=== PATIENT | female | born 1935 | race Caucasian/White ===

== ENCOUNTER 2017-07-14 17:45 | Inpatient (IN) ==
--- NOTE | 2017-07-14 18:26 | Emergency Department Report ---
Altered Mental Status HPI - General Chief Complaint: Altered Mental Status Stated Complaint: Diabetic,Disoriented Time Seen by Provider: 07/14/17 18:12 Source: patient Mode of arrival: ambulatory Limitations: no limitations - History of Present Illness HPI narrative: She is brought in today by her daughter and granddaughter. Her granddaughter had called her this evening around 1700 to tell her she was going to pick her up and take her to go get groceries. Mally did respond back but was not making sense with her speech. She had her daughter call her and she again felt that she was speaking gibberish. She was able to speak but was not answering correctly. She does live alone and they have not seen her or spoken to her today at all so they are unsure how long she has been like this. She did state that she went to [employer] last evening. Her friend did call her daughter and advised that she was worried about Mally as she was wanting to light her floor furnace and she would not let anyone help her. She has had some moments of confusion and forgetfulness the last few days. Dr Ness hinton had called her daughter as well and was concerned that she had not been taking her medications at home. complaint: altered mental status Onset (ago): unknown Timing confirmed by: family member Severity: moderate Associated symptoms: denies other symptoms - Related Data Home Medications Medication Instructions Recorded Confirmed Clopidogrel Bisulfate [Clopidogrel] 75 mg PO DAILY 07/14/17 07/14/17 HydroCHLOROthiazide [Hydrodiuril] 25 mg PO WB 07/14/17 07/14/17 Insulin Detemir [Levemir] 25 unit SQ BID 07/14/17 07/14/17 Metoprolol Succinate 100 mg PO DAILY 07/14/17 07/14/17 Nitroglycerin [Nitrostat] 0.4 mg PO Q5MIN3 PRN 07/14/17 07/14/17 Simvastatin [Zocor] 20 mg PO DAILY 07/14/17 07/14/17 glipiZIDE [Glipizide] 10 mg PO BID 07/14/17 07/14/17 Allergies Allergy/AdvReac Type Severity Reaction Status Date / Time Penicillins Allergy Unknown Verified 07/14/17 18:26 Sulfa (Sulfonamide Allergy Unknown Verified 07/14/17 18:26 Antibiotics) Review of Systems Constitutional: Denies: fever, chills, weakness ENT: Denies: ear pain, throat pain, congestion Cardiovascular: Denies: chest pain, palpitations, dyspnea on exertion, edema Respiratory: Denies: cough, dyspnea, wheezes Gastrointestinal: Denies: abdominal pain, nausea, vomiting, diarrhea Neurological: Denies: headache, weakness, numbness, paresthesias PFSH Diabetes HTN Glaucoma - Social History Smoking status: Never smoker Substance use type: does not use Alcohol intake frequency: does not drink Physical Exam - Limitations Limitations: no limitations - General General appearance: alert, in no apparent distress - Normal Exams: Eyes:: Pupils are PERRLA w/ EOMI, No scleral icterus, irritation, or foreign bodies noted ENMT:: No facial trauma, nasal exudates, pharyngeal erythema, or exudates are noted Neck:: Full range of motion, without adenopathy, JVD, bruits or thyromegaly Chest/Respirations:: Clear all bush, with good airflow, and symmetry bilaterally Cardiovascular:: Regular rate and rhythm, without murmur or gallop, Pulses 2+ all extremities, capillary refill, <2 seconds all extremities Abdomen:: Bowel sounds positive, soft, non-tender, non-distended, no hepatosplenomegaly, masses or bruits noted Lymphatic:: No lymphadenopathy, or lymphedema noted Integumentary:: No rashes, hives, or bruising noted Neurological:: Patient is alert Psychiatric:: Patient exhibits, appropriate attention, emotion and affect - Expanded Neurological Exam Cranial nerves: Normal: EOM function (II, III, IV, ), facial sensation (V), facial palsy (VII), gag reflex (IX), spinal accessory function (XI), tongue deviation (XII) Cerebellar function: Normal: finger to nose Motor strength - LUE: 5/5 Motor strength - RUE: 5/5 Motor strength - LLE: 5/5 Motor strength - RLE: 5/5 Upper motor neuron exam: Absent bilaterally: patricia neglect, pronator drift Sensory exam upper extremity: Normal: light touch Sensory exam lower extremity: Normal: light touch Coma scale eye opening: spontaneous Coma scale motor response: obeys commands Coma scale verbal response: oriented Coma scale total: 15 Altered Mental Status - MDM Narrative Medical decision making narrative: Her labs are unremarkable today as well as her head CT and chest xray. She does continue to be confused with conversation, is not answering appropriately. Did discuss findings and HPI with Dr Wang. He will accept for admission at this time. - Differential Diagnosis Likely: altered mental status, delirium, dementia, hyponatremia, subarachnoid hemorrhage - Lab Data Attestation: I reviewed the patient's lab results. Result diagrams: 07/14/17 18:16 07/14/17 18:16 - Radiology Data Attestation: I reviewed the patient's radiology results. Ct head: no acute findings Chest xray: left pleural effusion, chronic findings Disposition Clinical Impression: Altered mental status Qualifiers: Altered mental status type: unspecified Qualified Code(s): R41.82 - Altered mental status, unspecified Disposition: 02 To [facility] Condition: Stable Prescriptions: No Action Simvastatin [Zocor] 20 mg PO DAILY HydroCHLOROthiazide [Hydrodiuril] 25 mg PO WB glipiZIDE [Glipizide] 10 mg PO BID Metoprolol Succinate 100 mg PO DAILY Clopidogrel Bisulfate [Clopidogrel] 75 mg PO DAILY Insulin Detemir [Levemir] 25 unit SQ BID Nitroglycerin [Nitrostat] 0.4 mg PO Q5MIN3 PRN PRN Reason: Chest Pain Referrals: Srinath Srinivasan II, MD [Primary Care Provider] - Time of Disposition: 19:33 - Seen By: midlevel
--- OUTSIDE RECORDS SUMMARY | 2017-07-14 18:40 | External Medical Summary | Encounter Summary ---
:1935 Author Organization [facility] Address [address] [place] [address] Phone Care Team Providers Name Role Phone Unavailable Primary Care Provider Unavailable Reason for Visit Reason Comments Medication Refill Encounter Details Date Type Department Care Team Description 07/01/2017 Refill [facility] Aye Coats MD Physicians - Internal [address] [facility] [place] [address] [facility] [place] [address] [address] [phone] [address] [place] [address] Social History Tobacco Use Types Packs/Day Years Used Date Never Smoker Smokeless Tobacco: Never Used Sex Assigned at Date Recorded Not on file as of this encounter Plan of Treatment Not on fileas of this encounter Visit Diagnoses Not on filein this encounter
--- OUTSIDE RECORDS SUMMARY | 2017-07-14 18:40 | External Medical Summary | Clinical Summary ---
:1935 Author Organization [facility] Address [address] [place] [address] Phone Care Team Providers Name Role Phone Unavailable Primary Care Provider Unavailable Source Comments Some departments are not documenting in the electronic medical record. If you do not see the information that you expected, contact Release of Information in the Health Information Management department at [phone] for further assistance in locating additional records.[facility] Allergies Active Allergy Reactions Severity Noted Date Comments Penicillins HIVES, RASH Medium 01/09/2015 Sulfa (Sulfonamide Antibiotics) HIVES, RASH Medium 01/09/2015 Hay Fever And Allergy Relief RHINORRHEA Low 01/09/2015 Sorbitol DIARRHEA Low 01/09/2015 Current Medications Prescription Sig. Disp. Refills Start Date End Date Status ERGOCALCIFEROL (VITAMIN D2) Take by mouth Active (VITAMIN D PO) daily. hydrochlorothiazide Take 25 mg by Active (HYDRODIURIL) 25 mg tablet mouth daily. aspirin EC 81 mg tablet Take 81 mg by Active mouth daily. travoprost(+) (TRAVATAN Z) Apply 1 Drop Active 0.004 % drop ophthalmic to both eyes solution at bedtime daily. timolol (TIMOPTIC) 0.25 % Place 1 Drop 1 Bottle 12 05/06/2015 Active ophthalmic into or around solutionIndications: one eye(s) twice drop in each eye bid daily. Indications: one drop in each eye bid sertraline (ZOLOFT) 50 mg Take 1 Tab by 90 Tab 1 06/20/2015 Active tablet mouth daily. latanoprost (XALATAN) 0.005 Apply 1 Drop 1 Bottle 6 10/01/2015 Active % ophthalmic solution to both eyes at bedtime daily. LEVEMIR 100 unit/mL soln INJECT 50 10 mL 12 04/19/2016 Active UNITS SUB-Q ONCE DAILY AT BEDTIME simvastatin (ZOCOR) 40 mg 0.5 Tabs at 90 Tab 3 05/11/2016 Active tablet bedtime daily. valsartan (DIOVAN) 160 mg TAKE ONE 90 Tab 1 06/10/2016 Active tablet TABLET BY MOUTH DAILY metoprolol XL (TOPROL XL) Take 1 Tab by 90 Tab 1 06/10/2016 Active 100 mg extended release mouth daily. tablet glipiZIDE (GLUCOTROL) 10 mg TAKE ONE 180 Tab 3 09/13/2016 Active tablet TABLET BY MOUTH TWICE A DAY Active Problems Problem Noted Date TIA (transient ischemic attack) 06/20/2015 Noncompliance with diet and medication regimen 05/26/2015 Overview: Due to dementia Osteopenia 02/10/2015 Overview: Femoral neck t score -1.6. FRAX: 5% 10-year risk of hip fracture Vitamin B12 deficiency 01/21/2015 Type 2 diabetes mellitus with diabetic polyneuropathy (HCC) 01/20/2015 Last Assessment & Plan: No evidence of retinopathy on dilated fundus examination. Discussed importance of good blood glucose and blood pressure control. Mixed Alzheimer's and vascular dementia 01/10/2015 Overview: Progressive memory loss + apraxia and executive dysfunction. MoCA 12/2014. CAD (coronary artery disease) Overview: s/p CABG HTN (hypertension) Glaucoma Overview: Tmax unknown Trab OS Gonio Gr 4 OU 0.7/0.8 529/532 Travatan OU QHS Timolol OU BID Last Assessment & Plan: Formatting of this note may be different from the original. Good IOP on current topical medication. Moderate cupping both eyes. CPM. 6 months. Next Visit: MRx OCT Nerve OCT Mac IOP x Pach Dilate x Glare B-scan HVF x Stereo Disc Photos x HLD (hyperlipidemia) Seasonal allergies Resolved Problems Problem Noted Date Resolved Date Chronic diarrhea 01/09/2015 01/20/2015 Encounters Date Type Specialty Care Team Description 07/01/2017 Refill General Internal Medicine Aye Coats MD from Last 3 Months Family History Medical History Relation Name Comments Stroke Father Cancer Mother breast cancer Parkinson's Mother Relation Name Status Comments Father Mother Social History Tobacco Use Types Packs/Day Years Used Date Never Smoker Smokeless Tobacco: Never Used Sex Assigned at Date Recorded Not on file Last Filed Vital Signs Vital Sign Reading Time Taken Blood Pressure 104/70 06/20/2015 11:31 AM CDT Pulse 95 06/20/2015 11:31 AM CDT Temperature 36.4 C (97.6 F) 06/20/2015 11:31 AM CDT Respiratory Rate 16 06/20/2015 11:31 AM CDT Oxygen Saturation 99% 06/20/2015 11:31 AM CDT Inhaled Oxygen Concentration - - Weight 64.6 kg (142 lb 6.4 oz) 06/20/2015 11:31 AM CDT Height 142.2 cm (4' 8") 06/20/2015 11:31 AM CDT Body Mass Index 31.93 06/20/2015 11:31 AM CDT Plan of Treatment Health Maintenance Due Date Last Done Comments PHYSICAL (COMPREHENSIVE) EXAM 1942 PERTUSSIS VACCINE 1946 TETANUS VACCINE 1952 FOOT EXAM 1953 SHINGLES VACCINE 1995 HBA1C 11/23/2015 05/23/2015, 01/09/2015 MICROALBUMIN 01/21/2016 01/20/2015 DILATED EYE EXAM 02/08/2016 02/07/2015 PREVNAR/PNEUMOVAX (#2) 03/21/2016 03/21/2015 INFLUENZA VACCINE 04/26/2017 OSTEOPOROSIS SCREENING Completed 01/28/2015
--- OUTSIDE RECORDS SUMMARY | 2017-07-14 18:40 | External Medical Summary | Referral Summary ---
:1935 Author [facility] Address [address] [place] [address] A[place] Rodríguez [address] Care Team Providers Name Role Phone Srinath Srinivasan II Primary Care Physician Encounter [facility] [id number] Date(s): 07/20/16 - 07/20/16 [facility] [place] [address]- [place] Discharge Disposition: 01-Home or Self Care Attending Physician: Chris Sin PA-C Admitting Physician: Chris Sin PA-C Vital Signs No data available for this section Problem List No data available for this section Allergies, Adverse Reactions, Alerts No data available for this section Medications No data available for this section Results No data available for this section Immunizations Vaccine Date Refusal Reason influenza virus vaccine, inactivated 07/20/16 Procedures No data available for this section Social History No data available for this section Assessment and Plan No data available for this section
[2017-07-14] MEDS ORDERED: NS 1,000 ML IV ONE (19:21)
[2017-07-14] MEDS: SALINE FLUSH 10ml SYRINGE IVF PRN (19:30)
[2017-07-14] MEDS ORDERED: ASPIRIN 325 MG TABLET PO ONE (19:33)
[2017-07-14] MEDS ORDERED: HYDROCODONE/APAP 5mg/325mg TABLET PO PRN (20:04)
[2017-07-14] MEDS ORDERED: GLUCOSE ORAL GEL 40% 37.5gm PO PRN (20:04)
[2017-07-14] MEDS ORDERED: ACETAMINOPHEN 325 MG TABLET PO PRN (20:04)
[2017-07-14] MEDS ORDERED: NITROGLYCERIN 0.4 MG SUBLINGUAL TABLET SL PRN (20:04)
[2017-07-14] MEDS ORDERED: ONDANSETRON 4 MG/2 ML INJECTION IVP PRN (20:04)
[2017-07-14 21:23] VITALS: BMI 24.0
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
[2017-07-14] MEDS: INSULIN ASPART 100unit/ml INJECTION SQ PRN (21:35)
[2017-07-14] MEDS: INSULIN DETEMIR 100unit/ml INJECTION SQ SCH (21:36)
[2017-07-14] MEDS: NS 1,000 ML IV SCH (23:52)
[2017-07-15] MEDS: INSULIN ASPART 100unit/ml INJECTION SQ PRN ×4 (06:46→22:49)
--- NOTE | 2017-07-15 08:33 | XRay Report ---
INDICATION: dyspnea PROCEDURE: CHEST 2-VIEWS UPRIGHT (PA & LAT) Encounter: Initial COMPARISON: June 09, 2010 FINDINGS: Cardiac silhouette remains enlarged with some obscuration of the left base with overlapping soft tissues. No obvious focal infiltrate. No pleural effusion or pneumothorax. Prior CABG. Mediastinal contours and pulmonary vascularity are within normal limits. Degenerative change in the spine. Impression: No acute cardiopulmonary disease. .
--- NOTE | 2017-07-15 08:35 | CT Scan Report ---
Indication: confusion PROCEDURE: CT head/brain wo con: Encounter: Initial Comparison: None Technique: Axial CT images through the head were performed without contrast. Iterative Reconstruction dose reducing technique was utilized. FINDINGS: Probable 5 mm small calcified meningioma in the anterior superior right frontal region. The ventricles are of normal size, shape, and contour for the patient's age. There are scattered areas of low attenuation in the white matter which most likely represent changes from chronic microvascular ischemia. The brainstem, cerebellum, and cerebral hemispheres otherwise have a normal morphology and CT attenuation. There is no evidence of midline displacement. No hemorrhage, signs of acute territorial stroke, mass effect, or edema is evident. The visualized portions of the skull base, midface, and calvarium demonstrate no abnormality. The paranasal sinuses are well aerated and free of significant disease. The tympanic and mastoid cavities appear normal. IMPRESSION: No acute intracranial abnormality or hemorrhage. Probable small benign calcified meningioma. There is a preliminary report by [employer]. .
[2017-07-15] MEDS ORDERED: SIMVASTATIN 40 MG TABLET PO SCH ×2 (09:00→21:00)
[2017-07-15] MEDS: INSULIN DETEMIR 100unit/ml INJECTION SQ SCH ×2 (09:25→22:48)
[2017-07-15] MEDS: CLOPIDOGREL 75 MG TABLET PO SCH (09:25)
--- NOTE | 2017-07-15 09:39 | Ultrasound Report ---
Indication: change in thought process PROCEDURE: US carotid doppler BI: TECHNIQUE: Grayscale, color and duplex Doppler imaging was performed of the carotid systems bilaterally. Velocities in cm/sec - validated velocity measurements with angiographic measurements, velocity criteria are extrapolated from diameter data as defined by the Society of Radiologists in Ultrasound Consensus Conference Radiology 2003; 229;340-346. RIGHT: PSV ICA 107 EDV ICA 15.5 PSV CCA 56.4 EDV CCA 9.62 PSV ECA 237 ICA Diameter reduction 30%-50% (1.4-1.6)% LEFT: PSV ICA 72.2 EDV ICA 20.6 PSV CCA 58.4 EDV CCA 12 PSV ECA 271 ICA Diameter reduction 10%-30% (1.0-1.2 PSV<110)% The right vertebral artery is patent with cephalic flow. The left vertebral artery is patent with cephalic flow. Bilateral ECA stenoses with velocity elevations. Atherosclerotic plaque in both carotid bulbs and proximal ICAs without focal velocity elevation. IMPRESSION: 1.Borderline stenosis in the right proximal ICA based on ICA/CCA ratios. 2. No hemodynamically significant carotid stenosis on the left. .
[2017-07-15] MEDS: NS 1,000 ML IV SCH (10:29)
[2017-07-15] MEDS ORDERED: SALINE FLUSH 10ml SYRINGE ONE (11:06)
[2017-07-15] MEDS ORDERED: GADOTERIDOL 279.3mg/ml - 17ml SYRINGE IVP ONE (11:07)
--- NOTE | 2017-07-15 12:29 | Magnetic Resonance Report ---
Indication: change in thought processes PROCEDURE: MR head/brain wo/w con: Encounter: Initial Comparisons: Head CT dated July 14, 2017 Technique: Multiplanar, multisequence, MR imaging of the head with and without contrast was acquired. Contrast: 11 mL of ProHance FINDINGS: Calcified small meningioma in the right frontal vertex measuring 8 mm in size. This does not contact the underlying parenchyma and there is no surrounding parenchymal edema. Mild generalized atrophy. The ventricles are of normal size, shape, and contour for the patient's age. There are small nonspecific punctate areas of T2-weighted and T2 FLAIR weighted signal abnormality in the deep frontoparietal white matter that most likely represent small vessel ischemic disease. This is of a degree that is considered to be normal for the patient's age. The brain stem, cerebellum, and cerebral hemispheres otherwise have a normal morphologic appearance as well as MR signal intensity on all pulse sequences. Following intravenous administration of contrast, no areas of abnormal enhancement are evident. There are no areas of restricted diffusion to suggest an acute infarct. There is no evidence of an intracranial hemorrhage, or hydrocephalus. The visualized portions of the orbits, calvarium and skull base demonstrate no significant abnormality. Moderate sinus disease. IMPRESSION: No acute intracranial abnormality. Moderate sinus disease. .
[2017-07-15] MEDS ORDERED: INFLUENZA VAC High Dose 2017-18 (Fluzone HD*) (>=65yo) 0.5ml IM ONE (12:43)
[2017-07-15] MEDS ORDERED: PNEUMOCOCCAL 13 VACCINE 0.5ml INJECTION IM ONE (12:43)
[2017-07-15] MEDS ORDERED: ASPIRIN 81 MG CHEWABLE TABLET PO SCH (14:15)
[2017-07-15] MEDS ORDERED: INFLUENZA VAC. INJ. ADMIN CHARGE INJ ONE (18:40)
[2017-07-15] MEDS ORDERED: PNEUMOCOCCAL VAC ADMIN CHARGE INJ ONE (18:40)
[2017-07-15] MEDS ORDERED: SIMVASTATIN 20 MG TABLET PO SCH (21:00)
[2017-07-16] MEDS: INSULIN DETEMIR 100unit/ml INJECTION SQ SCH ×2 (09:40→21:12)
[2017-07-16] MEDS: CLOPIDOGREL 75 MG TABLET PO SCH (09:41)
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
[2017-07-16] MEDS ORDERED: INSULIN ASPART 100unit/ml INJECTION SQ ONE ×2 (15:43→21:15)
[2017-07-16] MEDS ORDERED: SIMVASTATIN 40 MG TABLET PO SCH (16:05)
--- NOTE | 2017-07-16 16:18 | Progress Note ---
- Date 07/16/17 Subjective: The patient was seen this afternoon alone in her room. She states she is feeling okay. She denies any pain. She denies shortness of breath. She is eating and drinking okay. She has no complaints. She states her vision is good today. The patient was noted to have a low blood sugar this morning on routine lab testing it was 45. She was given 2 juices and blood sugar did normalize. After lunch blood sugar was 315. Objective Vital signs: Temperature 96.3 F L 07/16/17 08:00 Pulse Rate 96 07/16/17 15:31 Respiratory Rate 16 07/16/17 15:31 Blood Pressure 188/91 H 07/16/17 15:31 Pulse Oximetry 99 07/16/17 15:31 Height/Weight/BMI: Weight 57.9 kg Comments: GEN-alert, pleasant, no acute distress HEENT-clear anicteric, oropharynx is moist NECK-supple CV-regular rate and rhythm CHEST-clear to auscultation bilaterally ABD-soft, nontender with positive bowel sounds -no Greene EXT-no edema NEURO-no focal deficits SKIN-warm and dry and without rashes Results - Labs CBC & Chem 7: 07/15/17 07:02 07/16/17 05:30 Labs: Specimen was hemolyzed this morning likely accounting for the elevated potassium of 5.6. Assessment and Plan (1) Metabolic encephalopathy Current visit: Yes Status: Acute (2) HTN (hypertension) Current visit: Yes Status: Acute (3) DM type 2 (diabetes mellitus, type 2) Current visit: Yes Status: Acute (4) Coronary artery disease Current visit: Yes Status: Acute (5) Dementia Current visit: Yes Status: Acute (6) Social discord Current visit: Yes Status: Acute DVT Prophylaxis: SCD's Resuscitation Status: Full Code Assessment and Plan: 07/16/2017 Impression Encephalopathy: Uncertain etiology. This could be related to underlying dementia with acute confusion due to TIA which is improving, versus hyperglycemia, versus uncontrolled blood pressure. -Overall improved Dementia, most likely Alzheimer's type Poorly controlled hypertension -blood pressure poorly controlled even after reinitiation of metoprolol poorly controlled type 2 diabetes with A1c of 12.1-blood sugar is labile on Levemir 25 units twice a day and sliding scale insulin. Hyperlipidemia-uncertain if patient was taking her simvastatin Coronary artery disease Possible depression Weight loss of 20 pounds-low pre-albumin of 13.2 Hypokalemia-resolved Borderline right proximal internal carotid artery stenosis Heart murmur Probable noncompliance with medication due to dementia Plan Blood sugars are currently labile. Will discontinue sliding scale. Monitor blood sugars closely. May need to adjust medication further. Hypertension, blood pressure is not well controlled even on metoprolol. We'll add Norvasc 5 mg daily. Increase activity as [id number] halls 3 times a day with the nurses B 12 level is pending Appreciate psychiatric consultation. Case management consult to discuss discharge planning with family. The patient will need 24-hour supervision due to her dementia. Regarding weight loss and low prealbumin, this may be due to irregular by mouth intake because of her dementia. Hopefully this will improve as an outpatient. Possible discharge on Tuesday if blood pressure and blood sugars are more stable. Hospital Course Summary Disclaimer: The visit summary below is not to be considered part of the above Progress Note. Hospital Course: 07/15/2017-I have reviewed the H&P above by Dr. Wang. I agree with the note above, please see my additions below. The patient was seen today accompanied by her daughter Ros and her granddaughter. Ros is DPOA along with her sister Shi. Chief complaint is speech difficulties History of present illness: The patient lives alone. Her daughter and granddaughter state that she has been having memory decline and problems with self-care over the past 2-3 years. They state that she was driving on a revoked license 2-3 years ago and was actually arrested and taken to [facility]. She has not driven since that time. Family has tried home health which the patient refused to cooperate with the nurse and would not make payments to the home health company and so this was discontinued. The patient was living with a daughter in [place] up until 2 years ago and was doing well when her medications were managed and her diet was regular but she declined when she went home. The patient's son and daughter and granddaughter check on her fairly frequently. Yesterday her granddaughter called and noticed that the patient had incoherent speech and stuttering and what sounds like word salad. She was brought into the emergency room and found to have elevated blood pressure as high as 220/96 and elevated blood sugar of 439. The patient was admitted for possible stroke versus TIA and stroke workup was initiated. She has had neuro checks. She has been on telemetry and has been in sinus rhythm. Carotid Dopplers were obtained and showed borderline blockage in the right proximal internal carotid. MRI brain was obtained and did not show an acute stroke. She did have a small calcified meningioma. CT head did not show an acute bleed or any other acute abnormalities. Also seen was a small calcified probable meningioma. Today, the patient's granddaughter and daughter state her speech is better but not back to baseline. The patient tells me she is feeling fine. She states she remembers having some difficulties with speech yesterday but cannot elaborate. She denies feeling poorly recently. She has had some blurry vision which she noted to her daughter in the past, and this is likely secondary to poorly controlled blood sugar. She admits that she has mild urinary frequency and some mild constipation. She has a chronic mild cough secondary to allergies. Family reports a 20 pound weight loss in the past 1 month. The patient denies any pain anywhere. She denies any chest pains, palpitations or lightheadedness. She denies any falls. The patient strongly wants to go back home and does not want to go to assisted living or to a nursing facility. On questioning regarding past medical history, I asked if she had a hysterectomy and the patient said no, but her daughter stated that she had. It's uncertain if the patient's history is reliable. It's uncertain if the patient is taking her medication as directed. She states she is, but she had some empty bottles that were over 1-month-old at home. Comprehensive review of systems is negative other than the above in history of present illness Past medical history: TIA, coronary artery disease (she sees Dr. Montalvo), hypertension, type 2 diabetes mellitus, osteoarthritis, depression, Past surgical history: CABG, BHARGAVI/BSO, bilateral cataract surgery Family history mother of cancer and had Parkinson's disease. Father of a stroke. Social history: The patient is , she is a lifelong nonsmoker/nondrinker , the patient's daughters Ros Valladares and Shi Reinoso are DPOA. The patient has a living will and is currently full code. We are obtaining an accurate medication list Allergies are to penicillin and sulfa with unknown reactions Physical exam Blood pressure is labile and was 185/73 this morning and 220/96 last night. Current blood pressure is 151/94. Heart rate is 88, O2 sat is 97% on room air GEN-alert, oriented to hospital, [facility], Tuesday. She at first stated it was 1917. Then stated it was the 20 teens, then after several moments of thinking said it was 2017. She is in no acute distress HEENT-pupils are equal round and reactive, sclera are anicteric, oropharynx is moist NECK-supple, bilateral carotid bruits CV-regular rate and rhythm with a 2/6 systolic murmur CHEST-clear to auscultation bilaterally ABD-soft, nontender, nondistended with positive bowel sounds -no Greene EXT-no edema NEURO-cranial nerves II through XII are grossly intact. Motor strength is 5 over 5 and equal in the upper and lower extremities. The patient is able to answer yes no questions but it's uncertain if her answers are accurate. She knew her primary care doctor was Dr. Srinivasan. When she is asked an open-ended question she had appears to have difficulty with word finding and does not end up answering the question which was asked. Repeat labs this morning shows potassium of 3.2. Repeat CBC is within normal limits. Troponin is negative 3. TSH is normal. Cholesterol is 186, LDL 106, triglycerides 267, HDL 26, VLDL 53, ratio is 7.2. Impression Encephalopathy: Uncertain etiology. This could be related to underlying dementia with acute confusion due to TIA which is improving, versus hyperglycemia, versus uncontrolled blood pressure. Per family, the patient is better today regarding her speech but is not back to baseline. Possible underlying dementia Poorly controlled hypertension poorly controlled type 2 diabetes with A1c of 12.1 Hyperlipidemia Coronary artery disease Possible depression Weight loss of 20 pounds Hypokalemia Borderline right proximal internal carotid artery stenosis Heart murmur Plan We'll change to inpatient admissions secondary to continued encephalopathy and poorly controlled blood pressure with continued elevation. We'll need to monitor blood pressure and blood sugar closely since it is not determined if the patient has been taking her medication correctly or not. We did call Dr. Srinivasan's office, and they stated they had received multiple notices from the patient's insurance that she was not refilling her medications on time, and likely not taking her medications accurately. Continue on Levemir and hold off on glipizide and Janumet for now. Continue metoprolol and hold off on hydrochlorothiazide for now. Consult speech therapy to evaluate speech fluency Consult OT and PT regarding possible TIA. Will also ask OT to do a HANK evaluation to help determine if the patient can safely live alone. May need psychiatric consultation to help determine competency and help rule out depression as a cause of her decline. Check vitamin B-12 level Check echocardiogram regarding possible TIA Continue on telemetry Discontinue IV fluids Increase activity as tolerated Consider adding aspirin once daily. 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 Prealbumin regarding weight loss
[2017-07-16] MEDS: AMLODIPINE 5 MG TABLET PO SCH (16:30)
--- NOTE | 2017-07-17 09:57 | Progress Note ---
<Madisyn Kaba D - Last Filed: 07/17/17 09:51> - Date 07/17/17 Subjective: Mally was seen after her bath. She ate a full breakfast. ELECTRICIAN APPRENTICE is at bedside and she reports that Mally is ambulating well and has a steady gait. Mally denies feeling weak, dizzy, or lightheaded. She denies any chest pain or SOA. No abdominal pain, n/v. She isn't sure if she has any symptoms when her blood glucose is low (it was 43 this am, improved to approx. 100 after a snack). Objective Vital signs: Temperature 96.9 F 07/17/17 07:00 Pulse Rate 83 07/17/17 07:00 Respiratory Rate 18 07/17/17 07:00 Blood Pressure 153/82 H 07/17/17 07:00 Pulse Oximetry 98 07/17/17 07:00 Height/Weight/BMI: Weight 59.6 kg - Constitutional Present: no acute distress, well nourished, well developed - Routine HEENT Exam Head: Present: normocephalic Eye: Absent: conjunctival icterus ENT: Present: mucous membranes moist, oropharynx clear - Routine Respiratory Exam Present: CTA bilaterally - Routine Cardiovascular Exam Present: RRR, S1, S2, murmur (2/6 systolic) - Routine Abdominal Exam Present: soft, normoactive bowel sounds, non distended, non tender - Routine Extremities Exam Present: no edema - Routine Skin Exam Present: intact, dry, warm - Routine Neurological Exam Present: alert - Routine Psychiatric Exam Present: normal affect, normal thought process, cooperative Results - Labs CBC & Chem 7: 07/17/17 04:13 07/17/17 04:13 Assessment and Plan (1) Metabolic encephalopathy Current visit: Yes Status: Acute 07/14/17 21:39 Patient with progression rapidly of cognition deficit. There was a remarkable worseing today. DDX: progression dementia, CVA, arrhythmia, At this time admit to observation with tele, rule out, (see below), neruo checks, MR of brain in am, carotid doppler. Have not ordered echo yet. Make further considerations after additional information provided. Family is updated and aware of the differential (2) HTN (hypertension) Current visit: Yes Status: Acute 07/14/17 21:41 this will be monitored, b kerry will be continued, adjusted meds as indicated (3) DM type 2 (diabetes mellitus, type 2) Current visit: Yes Status: Acute 07/14/17 21:41 patient with very poor control. check A1C, continue long acting as prescribed , but sliding scale. Patient has a 20 # weight loss over past several months. This is multifactorial but diabetes would be a component. diabetic education and counseling (4) Coronary artery disease Current visit: Yes Status: Acute 07/14/17 21:43 patient s/p CABG. on b kerry, asa, statin, plavix. no cardiac sx but will rule out as a precaution on tele. Has recently seen her compactor driver. It was not clear at that visit exactly what medications she was actually taking (5) Dementia Current visit: Yes Status: Acute 07/14/17 21:44 This patient has without a doubt progresion of a cognitive disorder (dementia) type unspecified. It is aware the her MME has been inconclusive. But clearly she is not processing as she has in the past. The patient will have a MRI in the am and make furher considerations after that. No meds yet recommended (6) Social discord Current visit: Yes Status: Acute 07/14/17 21:45 This patient is currently living independently. She is not doing well as her cognitive abilities are declining The patient is refusing home health services. She is not managing her medications appropriately. Clearly glycemic control not good. Clearly she is not eating well as demonstrated by 20# weight loss recently. (obviously cannot exclude tumor as a source but feel strongly that this is a reflection of congitive process on top of diabetes) social service cx placed. family desperate wanting help. DVT Prophylaxis: SCD's Resuscitation Status: Full Code Assessment and Plan: Impression Encephalopathy: Uncertain etiology. This could be related to underlying dementia with acute confusion due to TIA which is improving, versus hyperglycemia, versus uncontrolled blood pressure. -Overall improved Dementia, most likely Alzheimer's type Poorly controlled hypertension -blood pressure poorly controlled even after reinitiation of metoprolol poorly controlled type 2 diabetes with A1c of 12.1% - blood sugar is labile on Levemir 25 units twice a day and sliding scale insulin. Hyperlipidemia-uncertain if patient was taking her simvastatin Coronary artery disease Possible depression Weight loss of 20 pounds-low pre-albumin of 13.2 (mild protein-calorie malnutrition) Hypokalemia Borderline right proximal internal carotid artery stenosis Heart murmur Probable noncompliance with medication due to dementia Plan Hypoglycemia with sugar of 43 at 0315 this morning. She received 3U of SSI around 3 yesterday afternoon and again around 2100. She's also on Levemir 25 U BID. Discussed dosing with Dr. Olson: Change Levemir to daily dosing and eliminate HS dose. Start NovoLog 6U TID with meals. Do not give any insulin after her supper dose. Check BG at midnight and at 0300. Continue to hold glipizide - with her severe hypoglycemia it may be too much of a risk to resume this at discharge. K slightly low at 3.4 - will give KDur 20 mEq. Vit B12 still pending. BP improving on Norvasc; continue Metoprolol (home med). HCTZ on hold. Hospital Course Summary Disclaimer: The visit summary below is not to be considered part of the above Progress Note. Hospital Course: 07/15/2017-I have reviewed the H&P above by Dr. Wang. I agree with the note above, please see my additions below. The patient was seen today accompanied by her daughter Ros and her granddaughter. Ros is DPOA along with her sister Shi. Chief complaint is speech difficulties History of present illness: The patient lives alone. Her daughter and granddaughter state that she has been having memory decline and problems with self-care over the past 2-3 years. They state that she was driving on a revoked license 2-3 years ago and was actually arrested and taken to [facility]. She has not driven since that time. Family has tried home health which the patient refused to cooperate with the nurse and would not make payments to the home health company and so this was discontinued. The patient was living with a daughter in [place] up until 2 years ago and was doing well when her medications were managed and her diet was regular but she declined when she went home. The patient's son and daughter and granddaughter check on her fairly frequently. Yesterday her granddaughter called and noticed that the patient had incoherent speech and stuttering and what sounds like word salad. She was brought into the emergency room and found to have elevated blood pressure as high as 220/96 and elevated blood sugar of 439. The patient was admitted for possible stroke versus TIA and stroke workup was initiated. She has had neuro checks. She has been on telemetry and has been in sinus rhythm. Carotid Dopplers were obtained and showed borderline blockage in the right proximal internal carotid. MRI brain was obtained and did not show an acute stroke. She did have a small calcified meningioma. CT head did not show an acute bleed or any other acute abnormalities. Also seen was a small calcified probable meningioma. Today, the patient's granddaughter and daughter state her speech is better but not back to baseline. The patient tells me she is feeling fine. She states she remembers having some difficulties with speech yesterday but cannot elaborate. She denies feeling poorly recently. She has had some blurry vision which she noted to her daughter in the past, and this is likely secondary to poorly controlled blood sugar. She admits that she has mild urinary frequency and some mild constipation. She has a chronic mild cough secondary to allergies. Family reports a 20 pound weight loss in the past 1 month. The patient denies any pain anywhere. She denies any chest pains, palpitations or lightheadedness. She denies any falls. The patient strongly wants to go back home and does not want to go to assisted living or to a nursing facility. On questioning regarding past medical history, I asked if she had a hysterectomy and the patient said no, but her daughter stated that she had. It's uncertain if the patient's history is reliable. It's uncertain if the patient is taking her medication as directed. She states she is, but she had some empty bottles that were over 1-month-old at home. Comprehensive review of systems is negative other than the above in history of present illness Past medical history: TIA, coronary artery disease (she sees Dr. Montalvo), hypertension, type 2 diabetes mellitus, osteoarthritis, depression, Past surgical history: CABG, BHARGAVI/BSO, bilateral cataract surgery Family history mother of cancer and had Parkinson's disease. Father of a stroke. Social history: The patient is , she is a lifelong nonsmoker/nondrinker , the patient's daughters Ros Valladares and Shi Reinoso are DPOA. The patient has a living will and is currently full code. We are obtaining an accurate medication list Allergies are to penicillin and sulfa with unknown reactions Physical exam Blood pressure is labile and was 185/73 this morning and 220/96 last night. Current blood pressure is 151/94. Heart rate is 88, O2 sat is 97% on room air GEN-alert, oriented to hospital, [facility], Tuesday. She at first stated it was 1917. Then stated it was the 20 teens, then after several moments of thinking said it was 2017. She is in no acute distress HEENT-pupils are equal round and reactive, sclera are anicteric, oropharynx is moist NECK-supple, bilateral carotid bruits CV-regular rate and rhythm with a 2/6 systolic murmur CHEST-clear to auscultation bilaterally ABD-soft, nontender, nondistended with positive bowel sounds -no [place] EXT-no edema NEURO-cranial nerves II through XII are grossly intact. Motor strength is 5 over 5 and equal in the upper and lower extremities. The patient is able to answer yes no questions but it's uncertain if her answers are accurate. She knew her primary care doctor was Dr. Srinivasan. When she is asked an open-ended question she had appears to have difficulty with word finding and does not end up answering the question which was asked. Repeat labs this morning shows potassium of 3.2. Repeat CBC is within normal limits. Troponin is negative 3. TSH is normal. Cholesterol is 186, LDL 106, triglycerides 267, HDL 26, VLDL 53, ratio is 7.2. Impression Encephalopathy: Uncertain etiology. This could be related to underlying dementia with acute confusion due to TIA which is improving, versus hyperglycemia, versus uncontrolled blood pressure. Per family, the patient is better today regarding her speech but is not back to baseline. Possible underlying dementia Poorly controlled hypertension poorly controlled type 2 diabetes with A1c of 12.1 Hyperlipidemia Coronary artery disease Possible depression Weight loss of 20 pounds Hypokalemia Borderline right proximal internal carotid artery stenosis Heart murmur Plan We'll change to inpatient admissions secondary to continued encephalopathy and poorly controlled blood pressure with continued elevation. We'll need to monitor blood pressure and blood sugar closely since it is not determined if the patient has been taking her medication correctly or not. We did call Dr. Srinivasan's office, and they stated they had received multiple notices from the patient's insurance that she was not refilling her medications on time, and likely not taking her medications accurately. Continue on Levemir and hold off on glipizide and Janumet for now. Continue metoprolol and hold off on hydrochlorothiazide for now. Consult speech therapy to evaluate speech fluency Consult OT and PT regarding possible TIA. Will also ask OT to do a HANK evaluation to help determine if the patient can safely live alone. May need psychiatric consultation to help determine competency and help rule out depression as a cause of her decline. Check vitamin B-12 level Check echocardiogram regarding possible TIA Continue on telemetry Discontinue IV fluids Increase activity as tolerated Consider adding aspirin once daily. Will discuss with the patient's compactor driver. 07/17/17 Hypoglycemia with sugar of 43 at 0315 this morning. She received 3U of SSI around 3 yesterday afternoon and again around 2100. She's also on Levemir 25 U BID. Discussed dosing with Dr. Olson: Change Levemir to daily dosing and eliminate HS dose. Start NovoLog 6U TID with meals. Do not give any insulin after her supper dose. Check BG at midnight and at 0300. Continue to hold glipizide - with her severe hypoglycemia it may be too much of a risk to resume this at discharge. K slightly low at 3.4 - will give KDur 20 mEq. Vit B12 still pending. BP improving on Norvasc; continue Metoprolol (home med). HCTZ on hold. <Renetta Olson L - Last Filed: 07/17/17 16:27> - Date 07/17/17 Objective Vital signs: Temperature 96.8 F 07/17/17 15:09 Pulse Rate 84 07/17/17 15:34 Respiratory Rate 16 07/17/17 15:09 Blood Pressure 148/72 H 07/17/17 15:34 Pulse Oximetry 96 07/17/17 15:09 Height/Weight/BMI: Weight 59.6 kg Results - Labs CBC & Chem 7: 07/17/17 04:13 07/17/17 04:13 Assessment and Plan (1) Metabolic encephalopathy Current visit: Yes Status: Acute (2) HTN (hypertension) Current visit: Yes Status: Acute (3) DM type 2 (diabetes mellitus, type 2) Current visit: Yes Status: Acute (4) Coronary artery disease Current visit: Yes Status: Acute (5) Dementia Current visit: Yes Status: Acute (6) Social discord Current visit: Yes Status: Acute Assessment and Plan: 07/17/2017-I reviewed this chart, the patient history, and the STAINING MACHINE OPERATOR's/PA's documented findings as above. We discussed and formulated the assessment and plan as above with the additions below.-Dr. Olson Patient was seen in her room today. Currently, no family is present. Patient states she's feeling okay. She denies any complaints. She denies any pain. She denies any shortness of breath. She's eating and drinking well. The patient did have a low blood sugar again this morning. Chest is clear to auscultation. Cardio vascular reveals a regular rate and rhythm. Abdomen is soft and nontender. Extremities are free of edema. Impression and plan We'll adjust insulin as noted above. Monitor blood sugars closely. Continue to monitor blood pressure with change to metoprolol and Norvasc and off of hydrochlorothiazide. Monitor for fluid retention. May need to restart Lasix in the future. Echocardiogram is pending. B12 level is pending. Hospital Course Summary Disclaimer: The visit summary below is not to be considered part of the above Progress Note.
[2017-07-17] MEDS: CLOPIDOGREL 75 MG TABLET PO SCH (10:05)
[2017-07-17] MEDS: INSULIN ASPART 100unit/ml INJECTION SQ SCH ×3 (10:05→18:44)
[2017-07-17] MEDS: AMLODIPINE 5 MG TABLET PO SCH (10:05)
[2017-07-17] MEDS: SIMVASTATIN 20 MG TABLET PO SCH (20:01)
[2017-07-17] MEDS: INSULIN DETEMIR 100unit/ml INJECTION SQ SCH (22:20)
[2017-07-18] MEDS ORDERED: INSULIN ASPART 100unit/ml INJECTION SQ ONE ×2 (08:04→11:14)
[2017-07-18] MEDS: INSULIN ASPART 100unit/ml INJECTION SQ SCH ×3 (09:01→18:19)
[2017-07-18] MEDS: INSULIN DETEMIR 100unit/ml INJECTION SQ SCH (09:01)
[2017-07-18] MEDS: CLOPIDOGREL 75 MG TABLET PO SCH (09:02)
[2017-07-18] MEDS: AMLODIPINE 5 MG TABLET PO SCH (09:02)
--- NOTE | 2017-07-18 11:39 | Progress Note ---
<Shahnaz Mason - Last Filed: 07/18/17 11:36> - Date 07/18/17 Subjective: Patient seen today sitting up in her chair. She doesn't have any complaints at this time. She has no chest pain or shortness of breath. States her appetite is okay and states she is sleeping fine. Objective Vital signs: Temperature 97.5 F 07/18/17 07:21 Pulse Rate 100 07/18/17 08:00 Respiratory Rate 16 07/18/17 07:21 Blood Pressure 163/105 H 07/18/17 07:21 Pulse Oximetry 98 07/18/17 07:21 Height/Weight/BMI: Height 1.52 m Weight 55.792 kg Body Mass Index 24.0 - Constitutional Present: mild distress, well nourished, well developed - Routine Respiratory Exam Present: CTA bilaterally. Absent: wheezes - Routine Cardiovascular Exam Present: RRR, murmur (Gr II) - Routine Abdominal Exam Present: soft, normoactive bowel sounds, non distended. Absent: tenderness - Routine Extremities Exam Present: no edema, normal capillary refill - Routine Skin Exam Present: dry, warm - Routine Neurological Exam Present: alert. Absent: oriented X3 - Routine Lymphatic Exam Lymphatic: Absent: adenopathy - Routine Psychiatric Exam Present: normal affect, cooperative Results - Labs CBC & Chem 7: 07/17/17 04:13 07/18/17 05:23 Assessment and Plan (1) Metabolic encephalopathy Current visit: Yes Status: Acute (2) HTN (hypertension) Current visit: Yes Status: Acute (3) DM type 2 (diabetes mellitus, type 2) Current visit: Yes Status: Acute (4) Coronary artery disease Current visit: Yes Status: Acute (5) Dementia Current visit: Yes Status: Acute (6) Social discord Current visit: Yes Status: Acute Assessment and Plan: Impression: Encephalopathy: Uncertain etiology. This could be related to underlying dementia with acute confusion due to TIA which is improving, versus hyperglycemia, versus uncontrolled blood pressure. -Overall improved Dementia, most likely Alzheimer's type Poorly controlled hypertension -blood pressure poorly controlled even after reinitiation of metoprolol poorly controlled type 2 diabetes with A1c of 12.1% - blood sugar is labile on Levemir 25 units twice a day and sliding scale insulin. Hyperlipidemia-uncertain if patient was taking her simvastatin Coronary artery disease Possible depression Weight loss of 20 pounds-low pre-albumin of 13.2 (mild protein-calorie malnutrition) Hypokalemia Borderline right proximal internal carotid artery stenosis Heart murmur Probable noncompliance with medication due to dementia Plan: Blood sugars remain elevated. Her NovoLog was increased today from 6 units to 8 units before meals. (Novolog was initiated yesterday.) Yesterday she was also switched to once daily Levemir 25 U as opposed to Levemir 25 U BID which was her home dosing. Her home sitagliptin/metformin and glipizide remain on hold as well. Discussed with Dr. Olson. Will add in metformin 500mg BID. Consider increasing Levemir if BS's remain high. Blood pressures continue to run high. Currently on metolprolol 100qd and amlodipine 5mg qd. Her hydrochlorothiazide is still on hold. Will restart this today. Psychiatry has evaluated patient and does not feel she has the capacity to make her own decisions. Recommend she not return home independently. Hospital Course Summary Disclaimer: The visit summary below is not to be considered part of the above Progress Note. Hospital Course: Impression Encephalopathy: Uncertain etiology. This could be related to underlying dementia with acute confusion due to TIA which is improving, versus hyperglycemia, versus uncontrolled blood pressure. Per family, the patient is better today regarding her speech but is not back to baseline. Possible underlying dementia Poorly controlled hypertension poorly controlled type 2 diabetes with A1c of 12.1 Hyperlipidemia Coronary artery disease Possible depression Weight loss of 20 pounds Hypokalemia Borderline right proximal internal carotid artery stenosis Heart murmur 07/15/17-hospital admission We'll change to inpatient admissions secondary to continued encephalopathy and poorly controlled blood pressure with continued elevation. We'll need to monitor blood pressure and blood sugar closely since it is not determined if the patient has been taking her medication correctly or not. We did call Dr. Srinivasan's office, and they stated they had received multiple notices from the patient's insurance that she was not refilling her medications on time, and likely not taking her medications accurately. Continue on Levemir and hold off on glipizide and Janumet for now. Continue metoprolol and hold off on hydrochlorothiazide for now. Consult speech therapy to evaluate speech fluency Consult OT and PT regarding possible TIA. Will also ask OT to do a HANK evaluation to help determine if the patient can safely live alone. May need psychiatric consultation to help determine competency and help rule out depression as a cause of her decline. Check vitamin B-12 level Check echocardiogram regarding possible TIA Continue on telemetry Discontinue IV fluids Increase activity as tolerated Consider adding aspirin once daily. Will discuss with the patient's pillar man. 07/16/17 Blood sugars are currently labile. Will discontinue sliding scale. Monitor blood sugars closely. May need to adjust medication further. Hypertension, blood pressure is not well controlled even on metoprolol. We'll add Norvasc 5 mg daily. Increase activity as [id number] halls 3 times a day with the nurses B 12 level is pending Appreciate psychiatric consultation. Case management consult to discuss discharge planning with family. The patient will need 24-hour supervision due to her dementia. Regarding weight loss and low prealbumin, this may be due to irregular by mouth intake because of her dementia. Hopefully this will improve as an outpatient. Possible discharge on Tuesday if blood pressure and blood sugars are more stable. 07/17/17 Hypoglycemia with sugar of 43 at 0315 this morning. She received 3U of SSI around 3 yesterday afternoon and again around 2100. She's also on Levemir 25 U BID. Discussed dosing with Dr. Olson: Change Levemir to daily dosing and eliminate HS dose. Start NovoLog 6U TID with meals. Do not give any insulin after her supper dose. Check BG at midnight and at 0300. Continue to hold glipizide - with her severe hypoglycemia it may be too much of a risk to resume this at discharge. K slightly low at 3.4 - will give KDur 20 mEq. Vit B12 still pending. BP improving on Norvasc; continue Metoprolol (home med). HCTZ on hold. 07/18/17 Blood sugars remain elevated. Her NovoLog was increased today from 6 units to 8 units before meals. (Novolog was initiated yesterday.) Yesterday she was also switched to once daily Levemir 25 U as opposed to Levemir 25 U BID which was her home dosing. Her home sitagliptin/metformin and glipizide remain on hold as well. Discussed with Dr. Olson. Will add in metformin 500mg BID. Consider increasing Levemir if BS's remain high. Blood pressures continue to run high. Currently on metolprolol 100qd and amlodipine 5mg qd. Her hydrochlorothiazide is still on hold. Will restart this today. Psychiatry has evaluated patient and does not feel she has the capacity to make her own decisions. Recommend she not return home independently. <Renetta Olson - Last Filed: 07/18/17 17:51> - Date 07/18/17 Objective Vital signs: Temperature 98 F 07/18/17 15:45 Pulse Rate 94 07/18/17 16:21 Respiratory Rate 14 07/18/17 15:45 Blood Pressure 142/69 H 07/18/17 15:45 Pulse Oximetry 98 07/18/17 15:45 Height/Weight/BMI: Height 1.52 m Weight 55.792 kg Body Mass Index 24.0 Results - Labs CBC & Chem 7: 07/17/17 04:13 07/18/17 05:23 Assessment and Plan (1) Metabolic encephalopathy Current visit: Yes Status: Acute (2) HTN (hypertension) Current visit: Yes Status: Acute (3) DM type 2 (diabetes mellitus, type 2) Current visit: Yes Status: Acute (4) Coronary artery disease Current visit: Yes Status: Acute (5) Dementia Current visit: Yes Status: Acute (6) Social discord Current visit: Yes Status: Acute Assessment and Plan: 07/18/2017-I reviewed this chart, the patient history, and the INDUSTRIAL STAFF NURSE's/PA's documented findings as above. We discussed and formulated the assessment and plan as above with the additions below.-Dr. Olson Patient is seen early this evening accompanied by her daughter. The patient has no complaints. She denies any pain or shortness of breath. She's eating and drinking well. Her speech is not slurred but she still has significant difficulty with open-ended questions which is unchanged. On exam she is alert and in no acute distress. Chest is clear to auscultation. Cardiovascular reveals a regular rate and rhythm. Abdomen is soft and nontender. Extremities are free of edema. Impression and plan Continue to adjust insulin as needed. Metformin was initiated today. Hydrochlorothiazide restarted today for hypertension. We'll monitor for hypokalemia. Patient will need Snu versus group home at discharge. Case management is working on placement, possibly [facility]. Discussed with the patient's daughter. Hospital Course Summary Disclaimer: The visit summary below is not to be considered part of the above Progress Note.
[2017-07-18] MEDS: METFORMIN 500 MG TABLET PO SCH ×2 (12:40→18:19)
[2017-07-18] MEDS: SIMVASTATIN 20 MG TABLET PO SCH (20:10)
[2017-07-18] MEDS: SALINE FLUSH 10ml SYRINGE IVF PRN (20:10)
[2017-07-19 08:25] VITALS: RESP 16
[2017-07-19] MEDS: INSULIN ASPART 100unit/ml INJECTION SQ SCH ×3 (09:27→18:16)
[2017-07-19] MEDS: SALINE FLUSH 10ml SYRINGE IVF PRN (09:27)
[2017-07-19] MEDS: INSULIN DETEMIR 100unit/ml INJECTION SQ SCH (09:27)
[2017-07-19] MEDS: AMLODIPINE 5 MG TABLET PO SCH (09:28)
[2017-07-19] MEDS: METFORMIN 500 MG TABLET PO SCH ×2 (09:28→18:16)
[2017-07-19] MEDS: CLOPIDOGREL 75 MG TABLET PO SCH (09:28)
[2017-07-19] MEDS ORDERED: INSULIN ASPART 100unit/ml INJECTION SQ ONE (11:24)
--- NOTE | 2017-07-19 16:52 | Echocardiogram ---
DATE OF STUDY 07/15/2017 INDICATIONS TIA, coronary artery disease. TECHNICAL QUALITY Technically good 2D, M-mode, Doppler echocardiographic images were submitted for interpretation. FINDINGS 1. CARDIAC CHAMBERS: All cardiac chamber measurements are normal. Aortic root diameter is normal. RV size and contractility appear normal. 2. LEFT VENTRICLE: Wall thickness is normal. Wall motion analysis is normal. LV systolic function is normal. EF 70%. There is grade 1/4 diastolic dysfunction present with E/A 0.8. 3. VALVES: Aortic valve exhibits moderate sclerosis with some calcification. Valve opening appears very minimally restricted. Mitral valve exhibits annular calcification present. Leaflet structure and motion appear normal. Tricuspid valve structure and motion appear normal. Normal valve excursion. 4. DOPPLER: Findings shows trace pulmonary insufficiency. At least mild aortic insufficiency. Mild aortic valve stenosis is suggested based on a peak flow velocity of 1.8 m/sec, peak and mean pressure gradient of 13-10 mmHg. Mild -to-moderate aortic regurgitation. LVOT diameter of 1 cm calculates an aortic valve area of 1.5 cm2. There is mild mitral regurgitation present. No mitral stenosis. There is trace tricuspid regurgitation with estimated systolic PA pressure of 29 mmHg. 5. No evidence of pericardial effusion, intracardiac masses, thrombi, vegetations or shunts. IMPRESSION 1. Normal cardiac chamber size. 2. Normal LV systolic function, EF 70%. 3. Mild diastolic dysfunction. 4. Calcified aortic valve with very mild aortic stenosis and [id number] aortic regurgitation. 5. Mitral annular calcification with very mild mitral regurgitation. 6. Normal central venous pressure. Normal systolic PA pressure. 7. No evidence of pericardial effusion, intracardiac masses, thrombi, vegetations or shunts. [facility]
[2017-07-19] MEDS: SIMVASTATIN 20 MG TABLET PO SCH (20:18)
--- NOTE | 2017-07-19 20:51 | Progress Note ---
- Date 07/19/17 Subjective: The patient was seen earlier this afternoon. She stated she was feeling well. She had no complaints. She denies any pain. She denies any shortness of breath. She is eating and drinking well. She has had no further hypoglycemia. Objective Vital signs: Temperature 97.8 F 07/19/17 15:43 Pulse Rate 98 07/19/17 16:00 Respiratory Rate 16 07/19/17 15:43 Blood Pressure 135/60 07/19/17 15:43 Pulse Oximetry 98 07/19/17 15:43 Height/Weight/BMI: Height 1.52 m Weight 58.4 kg Body Mass Index 24.0 Comments: GEN-alert, mild confusion, no acute distress CV-regular rate and rhythm CHEST-to auscultation bilaterally ABD-soft, nontender with positive bowel sounds -no [place] EXT-no edema NEURO-no focal deficits SKIN-warm and dry Results - Labs CBC & Chem 7: 07/17/17 04:13 07/19/17 04:24 Labs: Laboratory Tests 07/18/17 07/18/17 07/19/17 15:25 19:56 04:24 Glucometer 231 186 Calculated Osmolality 274 Calcium 9.2 07/19/17 07/19/17 07/19/17 05:47 11:15 15:42 Glucometer 168 335 211 Calculated Osmolality Calcium Assessment and Plan (1) Metabolic encephalopathy Current visit: Yes Status: Acute (2) HTN (hypertension) Current visit: Yes Status: Acute (3) DM type 2 (diabetes mellitus, type 2) Current visit: Yes Status: Acute (4) Coronary artery disease Current visit: Yes Status: Acute (5) Dementia Current visit: Yes Status: Acute (6) Social discord Current visit: Yes Status: Acute Assessment and Plan: Impression: Encephalopathy: Uncertain etiology. This could be related to underlying dementia with acute confusion due to TIA which is improving, versus hyperglycemia, versus uncontrolled blood pressure. 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 poorly controlled type 2 diabetes with A1c of 12.1% Hyperlipidemia-uncertain if patient was taking her simvastatin Coronary artery disease Possible depression Weight loss of 20 pounds-low pre-albumin of 13.2 (mild protein-calorie malnutrition) Hypokalemia Borderline right proximal internal carotid artery stenosis Heart murmur Probable noncompliance with medication due to dementia Plan Due to hypoglycemia on Levemir 25 twice a day, she was placed on Levemir once daily and NovoLog with meals. We have been slowly increasing NovoLog with meals to help with hyperglycemia. She has had no further hypoglycemia in the mornings. Glucophage was also initiated 500 mg by mouth twice a day. Blood sugars are slowly improving. Hypertension is improving on Norvasc, metoprolol, and hydrochlorothiazide. Plan for dismissal to [facility] tomorrow at 1 PM. Discussed with case management today. Hospital Course Summary Disclaimer: The visit summary below is not to be considered part of the above Progress Note. Hospital Course: Impression Encephalopathy: Uncertain etiology. This could be related to underlying dementia with acute confusion due to TIA which is improving, versus hyperglycemia, versus uncontrolled blood pressure. Per family, the patient is better today regarding her speech but is not back to baseline. Possible underlying dementia Poorly controlled hypertension poorly controlled type 2 diabetes with A1c of 12.1 Hyperlipidemia Coronary artery disease Possible depression Weight loss of 20 pounds Hypokalemia Borderline right proximal internal carotid artery stenosis Heart murmur 07/15/17-hospital admission We'll change to inpatient admissions secondary to continued encephalopathy and poorly controlled blood pressure with continued elevation. We'll need to monitor blood pressure and blood sugar closely since it is not determined if the patient has been taking her medication correctly or not. We did call Dr. Srinivasan's office, and they stated they had received multiple notices from the patient's insurance that she was not refilling her medications on time, and likely not taking her medications accurately. Continue on Levemir and hold off on glipizide and Janumet for now. Continue metoprolol and hold off on hydrochlorothiazide for now. Consult speech therapy to evaluate speech fluency Consult OT and PT regarding possible TIA. Will also ask OT to do a HANK evaluation to help determine if the patient can safely live alone. May need psychiatric consultation to help determine competency and help rule out depression as a cause of her decline. Check vitamin B-12 level Check echocardiogram regarding possible TIA Continue on telemetry Discontinue IV fluids Increase activity as tolerated Consider adding aspirin once daily. Will discuss with the patient's car hiker. 07/16/17 Blood sugars are currently labile. Will discontinue sliding scale. Monitor blood sugars closely. May need to adjust medication further. Hypertension, blood pressure is not well controlled even on metoprolol. We'll add Norvasc 5 mg daily. Increase activity as [id number] halls 3 times a day with the nurses B 12 level is pending Appreciate psychiatric consultation. Case management consult to discuss discharge planning with family. The patient will need 24-hour supervision due to her dementia. Regarding weight loss and low prealbumin, this may be due to irregular by mouth intake because of her dementia. Hopefully this will improve as an outpatient. Possible discharge on Tuesday if blood pressure and blood sugars are more stable. 07/17/17 Hypoglycemia with sugar of 43 at 0315 this morning. She received 3U of SSI around 3 yesterday afternoon and again around 2100. She's also on Levemir 25 U BID. Discussed dosing with Dr. Olson: Change Levemir to daily dosing and eliminate HS dose. Start NovoLog 6U TID with meals. Do not give any insulin after her supper dose. Check BG at midnight and at 0300. Continue to hold glipizide - with her severe hypoglycemia it may be too much of a risk to resume this at discharge. K slightly low at 3.4 - will give KDur 20 mEq. Vit B12 still pending. BP improving on Norvasc; continue Metoprolol (home med). HCTZ on hold. 07/18/17 Blood sugars remain elevated. Her NovoLog was increased today from 6 units to 8 units before meals. (Novolog was initiated yesterday.) Yesterday she was also switched to once daily Levemir 25 U as opposed to Levemir 25 U BID which was her home dosing. Her home sitagliptin/metformin and glipizide remain on hold as well. Discussed with Dr. Olson. Will add in metformin 500mg BID. Consider increasing Levemir if BS's remain high. Blood pressures continue to run high. Currently on metolprolol 100qd and amlodipine 5mg qd. Her hydrochlorothiazide is still on hold. Will restart this today. Psychiatry has evaluated patient and does not feel she has the capacity to make her own decisions. Recommend she not return home independently.
[2017-07-20 01:43] VITALS: O2SAT 99
[2017-07-20 07:29] VITALS: BP 176/73; TEMP 96.8
[2017-07-20] MEDS: AMLODIPINE 5 MG TABLET PO SCH (08:49)
[2017-07-20] MEDS: INSULIN DETEMIR 100unit/ml INJECTION SQ SCH (08:49)
[2017-07-20] MEDS: INSULIN ASPART 100unit/ml INJECTION SQ SCH ×2 (08:49→12:05)
[2017-07-20] MEDS: CLOPIDOGREL 75 MG TABLET PO SCH (08:49)
[2017-07-20] MEDS: METFORMIN 500 MG TABLET PO SCH (08:49)
--- NOTE | 2017-07-20 09:01 | Discharge Instructions ---
Discharge Plan - Med Rec/Dispo [facility] Instructions: Type 2 Diabetes in Adults (DC), Altered Mental Status (GEN ) Prescriptions: New Insulin Detemir [Levemir] 30 unit SQ DAILY vial Amlodipine [Norvasc] 5 mg PO DAILY tablet Acetaminophen [Tylenol] 325 - 650 mg PO Q5H PRN tablet PRN Reason: Discomfort Insulin Aspart [NovoLOG] 12 unit SQ TIDWM vial Metformin [Glucophage] 500 mg PO BIDWM tablet Continue Simvastatin [Zocor] 20 mg PO HS HydroCHLOROthiazide [Hydrodiuril] 25 mg PO WB Metoprolol Succinate 100 mg PO DAILY Clopidogrel Bisulfate [Clopidogrel] 75 mg PO DAILY Nitroglycerin Patch [Nitro-Dur 0.1 mg/Hr] 1 patch TD DAILY PRN PRN Reason: Chest Pain Cholecalciferol (Vitamin D3) [Vitamin D3] 1 tab PO DAILY Fexofenadine HCl 1 tab PO DAILY PRN PRN Reason: Allergy Symptoms Nitroglycerin [Nitrostat] 0.4 mg PO Q5MIN3 PRN PRN Reason: Chest Pain Discontinued glipiZIDE [Glipizide] 10 mg PO BID Insulin Detemir [Levemir] 25 unit SQ BID Sitagliptin Phos/Metformin HCl [Janumet 50-1,000 mg Tablet] 1 tab PO BID Furosemide [Lasix] 1 tab PO DAILY Discharge Instructions/Outpatient Orders: Provider Discharge Instructions Location: Determined By Patient - Disposition 03 To [facility] Not [facility] ([facility])
--- NOTE | 2017-07-20 09:11 | Extended Care Facility Orders ---
<Shi Hearn V - Last Filed: 07/20/17 09:10> Admission Orders Admit to:: Care Home Allergies/Adverse Reactions: Allergies Penicillins Allergy (Unknown, Verified 07/14/17 18:26) Sulfa (Sulfonamide Antibiotics) Allergy (Unknown, Verified 07/14/17 18:26) Admitting Diagnosis: Confused Admitting Physician: Renetta Olson MD Attending Physician: Renetta Olson MD Code Status: Full Code Anticiapted Length of Stay: 30 days or less Rehab Potential: good Rehab Prognosis: good May use Facility Protocol or Standing Orders: Yes May have flu vaccine: Yes Evaluations/Treatment: PT, OT Care Home Certification: I certify that SNF services are required to be given on an Inpatient basis because of the patients need for fpc care on a continuing basis for the condition(s) for which he/she received inpatient hospital services prior to his/her transfer to the SNF. SNF inpatient care is necessary for the following reasons Indication for Care Home: Diabetic Assessment, Diabetic Education, Other ( PT,OT) - Additional Information In Event of Arrest: Start CPR,call 911,send patient to the ER Additional Orders: Please monitor blood pressure carefully. Patient may require increase in antihypertensive dosing <Renetta Olson - Last Filed: 07/20/17 10:19> Admission Orders Admitting Diagnosis: Confused Admitting Physician: Renetta Olson MD Attending Physician: Renetta Olson MD Code Status: Full Code Diet: diabetic diet Care Home Certification: I certify that SNF services are required to be given on an Inpatient basis because of the patients need for fpc care on a continuing basis for the condition(s) for which he/she received inpatient hospital services prior to his/her transfer to the SNF. SNF inpatient care is necessary for the following reasons - Additional Information Laboratory/Radiology: bmp 07/22 and 07/27 for medication monitoring, on HCTZ without potassium Additional Orders: Please monitor blood sugars closely, she may need further adjustment of diabetes medication
--- NOTE | 2017-07-20 09:20 | Discharge Summary ---
<Shi Hearn V - Last Filed: 07/20/17 10:14> Discharge Information Date of admission: 07/15/17 14:32 Anticipated date of discharge: 07/20/17 Attending Physician: Renetta Olson MD Consults: 07/15/17 17:21 Physician Consult [CONS] Routine Consulting Provider: Dung June Reason For Exam: Failed HANK eval, need for guardian?, ?depression Ordering Provider has Notified Manager Corporate Strategy: Yes Comment: [facility] nurse notified of consult - Discharge Diagnosis (1) Metabolic encephalopathy Status: Acute (2) HTN (hypertension) Status: Acute (3) DM type 2 (diabetes mellitus, type 2) Status: Acute (4) Coronary artery disease Status: Acute (5) Dementia Status: Acute (6) Social discord Status: Acute - Procedures Procedures: None - Laboratory Labs: 07/17/17 04:13 07/19/17 04:24 - Microbiology None - Radiology Radiology: 07/14/17-CT scan of the head-no intracranial abnormality or hemorrhage. Probable small benign calcified meningioma 07/14/17-chest x-ray-no acute cardiopulmonary disease 07/15/17-MRI of the brain- IMPRESSION: No acute intracranial abnormality. Moderate sinus disease. 07/15/17-ultrasound carotid Doppler- IMPRESSION: 1.Borderline stenosis in the right proximal ICA based on ICA/CCA ratios. 2. No hemodynamically significant carotid stenosis on the left. - Pathology None History of Present Illness HPI: This is an 82y/o female that has been slowly declining over the past months. The family at one time had services in the house but she would refuse to cooperate with them and ultimately they were excused. The daughter and now granddaughter have been providing support system for the patient who lives alone otherwise. Most recently the patient was seen by her feed preparation operator who noted that she was not clear regarding her medications and there were real concerns for her success at stay in independent. Today though, the patient had a remarkable worsening of processing abilities. The dgt and g dgt noted that the patient was having troubles finishing sentences. This was a more dramatic change in her level of function. The patient is brought to the ED where the initial neuro evaluation is normal with labs and CT head negative. Additionally no evidence of a UTI. Thus the patient will be admitted for further assessment. It is noted that the patient is able to respond to questions and a limited history is obtained. It is futher worth noting that the patient has had CABG in the past Objective Vital signs: Temperature 96.8 F 07/20/17 07:27 Pulse Rate 86 07/20/17 07:27 Respiratory Rate 16 07/20/17 07:27 Blood Pressure 176/73 H 07/20/17 07:27 Pulse Oximetry 99 07/20/17 07:27 Height/Weight/BMI: Height 1.52 m Weight 57.8 kg Body Mass Index 24.0 - Constitutional Present: no acute distress, well nourished, well developed - Routine HEENT Exam Eye: Present: EOMI ENT: Present: mucous membranes moist, dentition normal - Routine Respiratory Exam Present: CTA bilaterally. Absent: wheezes - Routine Cardiovascular Exam Present: RRR, S1, S2. Absent: murmur - Routine Abdominal Exam Present: soft, normoactive bowel sounds, non distended. Absent: tenderness - Routine Extremities Exam Present: full ROM - Routine Back/Spine/Pelvis Exam Back/Spine: Present: full ROM - Routine Skin Exam Present: intact, dry, warm - Routine Neurological Exam Present: alert, oriented X3, CN II-XII intact - Routine Lymphatic Exam Lymphatic: Absent: adenopathy - Routine Psychiatric Exam Present: cooperative Hospital Course This is a general summary of the patient's hospital course. For more details refer to the complete medical record. Hospital course: Impression Encephalopathy: Uncertain etiology. This could be related to underlying dementia with acute confusion due to TIA which is improving, versus hyperglycemia, versus uncontrolled blood pressure. Per family, the patient is better today regarding her speech but is not back to baseline. Possible underlying dementia Poorly controlled hypertension poorly controlled type 2 diabetes with A1c of 12.1 Hyperlipidemia Coronary artery disease Possible depression Weight loss of 20 pounds Hypokalemia Borderline right proximal internal carotid artery stenosis Heart murmur 07/15/17-hospital admission We'll change to inpatient admissions secondary to continued encephalopathy and poorly controlled blood pressure with continued elevation. We'll need to monitor blood pressure and blood sugar closely since it is not determined if the patient has been taking her medication correctly or not. We did call Dr. Srinivasan's office, and they stated they had received multiple notices from the patient's insurance that she was not refilling her medications on time, and likely not taking her medications accurately. Continue on Levemir and hold off on glipizide and Janumet for now. Continue metoprolol and hold off on hydrochlorothiazide for now. Consult speech therapy to evaluate speech fluency Consult OT and PT regarding possible TIA. Will also ask OT to do a HANK evaluation to help determine if the patient can safely live alone. May need psychiatric consultation to help determine competency and help rule out depression as a cause of her decline. Check vitamin B-12 level Check echocardiogram regarding possible TIA Continue on telemetry Discontinue IV fluids Increase activity as tolerated Consider adding aspirin once daily. Will discuss with the patient's feed preparation operator. 07/16/17 Blood sugars are currently labile. Will discontinue sliding scale. Monitor blood sugars closely. May need to adjust medication further. Hypertension, blood pressure is not well controlled even on metoprolol. We'll add Norvasc 5 mg daily. Increase activity as [id number]-[id number]-[id number] halls 3 times a day with the nurses B 12 level is pending Appreciate psychiatric consultation. Case management consult to discuss discharge planning with family. The patient will need 24-hour supervision due to her dementia. Regarding weight loss and low prealbumin, this may be due to irregular by mouth intake because of her dementia. Hopefully this will improve as an outpatient. Possible discharge on Tuesday if blood pressure and blood sugars are more stable. 07/17/17 Hypoglycemia with sugar of 43 at 0315 this morning. She received 3U of SSI around 3 yesterday afternoon and again around 2100. She's also on Levemir 25 U BID. Discussed dosing with Dr. Olson: Change Levemir to daily dosing and eliminate HS dose. Start NovoLog 6U TID with meals. Do not give any insulin after her supper dose. Check BG at midnight and at 0300. Continue to hold glipizide - with her severe hypoglycemia it may be too much of a risk to resume this at discharge. K slightly low at 3.4 - will give KDur 20 mEq. Vit B12 still pending. BP improving on Norvasc; continue Metoprolol (home med). HCTZ on hold. 07/18/17 Blood sugars remain elevated. Her NovoLog was increased today from 6 units to 8 units before meals. (Novolog was initiated yesterday.) Yesterday she was also switched to once daily Levemir 25 U as opposed to Levemir 25 U BID which was her home dosing. Her home sitagliptin/metformin and glipizide remain on hold as well. Discussed with Dr. Olson. Will add in metformin 500mg BID. Consider increasing Levemir if BS's remain high. Blood pressures continue to run high. Currently on metolprolol 100qd and amlodipine 5mg qd. Her hydrochlorothiazide is still on hold. Will restart this today. Psychiatry has evaluated patient and does not feel she has the capacity to make her own decisions. Recommend she not return home independently. 07/20/17- Discharge Mally is seen and examined today and she is without complaints. She is planing for discharge today to [facility] longterm. Have recommended monitoring blood pressures carefully as they have been intermittently elevated. She will possibly need an increase in one of her antihypertensives. Overnight she continued to have persistent hyperglycemia, Levemir was increased to 30 units daily, and NovoLog 10 units 3 times a day with meals as well as oral metformin twice a day. Recommend monitoring Accu- Cheks routinely. Otherwise, patient appears medically stable at time of discharge. Recommend CBC and BMP in 1 week Time spent with patient: discharge greater than 30 minutes Discharge Plan - Med Rec/Dispo Prescriptions: New Insulin Detemir [Levemir] 30 unit SQ DAILY vial Amlodipine [Norvasc] 5 mg PO DAILY tablet Acetaminophen [Tylenol] 325 - 650 mg PO Q5H PRN tablet PRN Reason: Discomfort Insulin Aspart [NovoLOG] 12 unit SQ TIDWM vial Metformin [Glucophage] 500 mg PO BIDWM tablet Continue Simvastatin [Zocor] 20 mg PO HS HydroCHLOROthiazide [Hydrodiuril] 25 mg PO WB Metoprolol Succinate 100 mg PO DAILY Clopidogrel Bisulfate [Clopidogrel] 75 mg PO DAILY Nitroglycerin Patch [Nitro-Dur 0.1 mg/Hr] 1 patch TD DAILY PRN PRN Reason: Chest Pain Cholecalciferol (Vitamin D3) [Vitamin D3] 1 tab PO DAILY Fexofenadine HCl 1 tab PO DAILY PRN PRN Reason: Allergy Symptoms Nitroglycerin [Nitrostat] 0.4 mg PO Q5MIN3 PRN PRN Reason: Chest Pain Discontinued glipiZIDE [Glipizide] 10 mg PO BID Insulin Detemir [Levemir] 25 unit SQ BID Sitagliptin Phos/Metformin HCl [Janumet 50-1,000 mg Tablet] 1 tab PO BID Furosemide [Lasix] 1 tab PO DAILY Discharge Instructions/Outpatient Orders: Provider Discharge Instructions Location: Determined By Patient <Renetta Olson - Last Filed: 07/20/17 10:26> Discharge Information Date of admission: 07/15/17 14:32 Attending Physician: Renetta Olson MD Consults: 07/15/17 17:21 Physician Consult [CONS] Routine Consulting Provider: Dung June Reason For Exam: Failed HANK eval, need for guardian?, ?depression Ordering Provider has Notified Manager Corporate Strategy: Yes Comment: [facility] nurse notified of consult - Discharge Diagnosis (1) Metabolic encephalopathy Status: Acute (2) HTN (hypertension) Status: Acute (3) DM type 2 (diabetes mellitus, type 2) Status: Acute (4) Coronary artery disease Status: Acute (5) Dementia Status: Acute (6) Social discord Status: Acute - Laboratory Labs: 07/17/17 04:13 07/19/17 04:24 Objective Vital signs: Temperature 96.8 F 07/20/17 07:27 Pulse Rate 84 07/20/17 08:15 Respiratory Rate 16 07/20/17 07:27 Blood Pressure 176/73 H 07/20/17 07:27 Pulse Oximetry 99 07/20/17 07:27 Height/Weight/BMI: Height 1.52 m Weight 57.8 kg Body Mass Index 24.0 Hospital Course This is a general summary of the patient's hospital course. For more details refer to the complete medical record. Hospital course: 07/20/2017-I reviewed this chart, the patient history, and the PROPERTY MAN's/PA's documented findings as above. We discussed and formulated the assessment and plan as above with the additions below.-Dr. Olson Patient is seen in her room today. She is feeling well and has no complaints. She is eating and drinking well. She has had no further hypoglycemia. Blood sugars are still moderately elevated, but doing well enough to be discharged. Blood pressures are under better control but may still need further adjustment as an outpatient. Chest is clear to auscultation. Cardiovascular reveals a regular rate and rhythm. Abdomen is soft and nontender. Extremities are free of edema. At this time, the patient appears stable for dismissal to longterm. She will need close monitoring of her blood sugars and blood pressure. She may need further adjustment of her blood pressure medications or diabetes medications. Recommend a basic metabolic profile on July 22 and July 27 since she is on hydrochlorothiazide without potassium. She would benefit from a repeat lipid panel in 4 weeks. Lipids were mildly elevated, but it's uncertain if the patient was taking her statin or any of her other medications at home because of her dementia. I did not change her statin during this hospital course. We'll dismiss to SNU today. Greater than 30 minutes of time was spent on dismissal today.
[2017-07-20 09:50] VITALS: PULSE 84
== END 2017-07-20 13:05 | DRG 72 ==
LOC: ED 17:45 → MED 17:45 → SUATTDRO 19:44 → MED 20:25
PROVIDERS: ADMIT Emergency Medicine; ATTEND Internal Medicine